=== PATIENT | female | born 1990 | race Caucasian/White ===

== ENCOUNTER 2016-09-10 20:05 | Emergency (ER) | payer OTHER ==
[2016-09-10 20:24] VITALS: BP 142/74
--- NOTE | 2016-09-10 21:04 | UC ---
Lower Extremity/Ankle HPI - HPI Summary HPI Summary: patient has had 2 days of mid foot pain on the right foot, unknown HARLAN, cant pin pint pain loaction and cannot replicated pain at this time. she states it started in the foot and radiates up the leg sometimes. - History of Current Complaint Chief Complaint: UCLowerExtremity Stated Complaint: FOOT PAIN Time Seen by Provider: 09/10/16 20:48 Hx Last Menstrual Period: pt has nexplanon - Allergies/Home Medications Allergies/Adverse Reactions: Allergies Allergy/AdvReac Type Severity Reaction Status Date / Time No Known Allergies Allergy Verified 05/22/13 16:17 Home Medications: Home Medications Etonogestrel [Nexplanon] 68 mg IMPLANT 09/10/16 [History] PMH/Surg Hx/FS Hx/Imm Hx Endocrine History Of: Denies: Diabetes, Thyroid Disease Cardiovascular History Of: Denies: Cardiac Disorders, Hypertension Respiratory History Of: Denies: COPD, Asthma GI/ History Of: Denies: Ulcer - Surgical History Surgical History: Yes Surgery Procedure, Year, and Place: July 26, 2010 - ; failure to progress - Social History Alcohol Use: Occasionally Substance Use Type: None Smoking Status (MU): Never Smoked Tobacco Review of Systems Constitutional: Negative Skin: Negative Eyes: Negative ENT: Negative Respiratory: Negative Cardiovascular: Negative Gastrointestinal: Negative Genitourinary: Negative Motor: Negative Neurovascular: Negative Musculoskeletal: Arthralgia, Decreased ROM, Myalgia Neurological: Negative Psychological: Negative All Other Systems Reviewed And Are Negative: Yes Physical Exam Triage Information Reviewed: Yes Appearance: Well-Appearing, Well-Nourished, Pain Distress Vital Signs: Initial Vital Signs Temp 98.2 F 09/10/16 20:19 Pulse 86 09/10/16 20:19 Resp 18 09/10/16 20:19 BP 142/74 09/10/16 20:19 Pulse Ox 99 09/10/16 20:19 Vital Signs Reviewed: Yes Eye Exam: Normal Eyes: Positive: Conjunctiva Clear ENT Exam: Normal ENT: Positive: Hearing grossly normal, Pharynx normal, TMs normal Dental Exam: Normal Neck exam: Normal Neck: Positive: Supple, Nontender, No Lymphadenopathy Respiratory Exam: Normal Respiratory: Positive: Chest non-tender, Lungs clear, Normal breath sounds Cardiovascular Exam: Normal Cardiovascular: Positive: RRR, No Murmur, Pulses Normal Abdominal Exam: Normal Abdomen Description: Positive: Nontender, No Organomegaly, Soft Bowel Sounds: Positive: Present Musculoskeletal: Positive: Strength Intact, ROM Intact, No Edema, Other: - patient unable to replicated pain, weight bearing causes diffuse pain, points to some discomfort on the 5th met, some discomfort at the ball of the foot. Neurological Exam: Normal Neurological: Positive: Alert, Muscle Tone Normal Psychological Exam: Normal Skin Exam: Normal Lower Extremity Course/Dx - Course Course Of Treatment: hx obtained, exam performed, meds reviewed, xray is negative, placed in charlene and post p shoe for support, recommend warm soaks 20-3 times daily and follow up with any increasing symtpoms. - Differential Dx/Diagnosis Differential Diagnosis/HQI/PQRI: Contusion, Fracture (Closed), Sprain, Strain, Tendonitis Provider Diagnoses: foot strain Discharge - Discharge Plan Condition: Stable Disposition: HOME Patient Education Materials: Muscle Strain (ED) Additional Instructions: 1. wear the charlene and post op shoe for comfort. 2. warm foot soaks 2-3 times a day to increase circulation. 3. Follow up with increasing symptoms, your xray was negative. 4. Ibuprofen or tylenol for pain.
--- NOTE | 2016-09-10 21:36 | RAD ---
INDICATION: 3 days of mid foot pain with unknown injury. COMPARISON: None. TECHNIQUE: 3 views of the right foot were obtained. FINDINGS: The adequately corticated bones are properly aligned. Joint spaces appear maintained. No fracture, dislocation or focal bony abnormality is seen. IMPRESSION: Normal radiograph of the right foot. If the patient's symptoms persist, follow-up imaging is recommended.
== END 2016-09-10 21:51 | disposition home or self-care (01) ==
LOC: UCEAST 20:05
DX: S96.911A Strain of unspecified muscle and tendon at ankle and foot level, right foot, initial encounter (principal); X58.XXXA Exposure to other specified factors, initial encounter
CPT/HCPCS: 99203; G0463

== ENCOUNTER 2017-02-19 09:26 | Emergency (ER) | payer OTHER ==
[2017-02-19 10:51] VITALS: BP 140/91
--- NOTE | 2017-02-19 11:07 | UC ---
Ear Complaint HPI - HPI Summary HPI Summary: 26 yo female with left ear pain x 5 days no f/c no URI symptoms - History of Current Complaint Chief Complaint: UCEar Stated Complaint: EARS PLUGGED Time Seen by Provider: 02/19/17 10:47 Hx Obtained From: Patient Hx Last Menstrual Period: pt has nexplanon Onset/Duration: Sudden Onset Severity Initially: Mild Severity Currently: Moderate Pain Intensity: 4 Pain Scale Used: 0-10 Numeric Aggravating Factors: Nothing Alleviating Factors: Nothing Associated Signs/Symptoms: Positive: Hearing Loss Related History: Prior ENT Surgery - PETs - Allergies/Home Medications Allergies/Adverse Reactions: Allergies Allergy/AdvReac Type Severity Reaction Status Date / Time No Known Allergies Allergy Verified 05/22/13 16:17 PMH/Surg Hx/FS Hx/Imm Hx Previously Healthy: Yes - Surgical History Surgical History: Yes Surgery Procedure, Year, and Place: July 26, 2010 - ; failure to progress - Family History Known Family History: Negative: Cardiac Disease, Hypertension, Diabetes - Social History Alcohol Use: Occasionally Substance Use Type: None Smoking Status (MU): Never Smoked Tobacco Review of Systems Constitutional: Negative Skin: Negative Eyes: Negative ENT: Ear Ache Respiratory: Negative Cardiovascular: Negative Gastrointestinal: Negative Genitourinary: Negative Motor: Negative Neurovascular: Negative Musculoskeletal: Negative Neurological: Negative Psychological: Negative Is Patient Immunocompromised?: No All Other Systems Reviewed And Are Negative: Yes Physical Exam Triage Information Reviewed: Yes Appearance: Well-Appearing, No Pain Distress, Well-Nourished Vital Signs: Initial Vital Signs Temp 99.1 F 02/19/17 10:47 Pulse 86 02/19/17 10:47 Resp 18 02/19/17 10:47 BP 140/91 02/19/17 10:47 Pulse Ox 99 02/19/17 10:47 Vital Signs Reviewed: Yes Eyes: Positive: Conjunctiva Clear ENT: Positive: TM bulging - L, TM red - L. Negative: Hearing grossly normal - decreased hearing left, Nasal congestion, Nasal drainage, Trismus, Muffled/ hoarse voice Neck: Positive: Supple, Nontender Respiratory: Positive: Lungs clear, Normal breath sounds, No respiratory distress Cardiovascular: Positive: RRR, No Murmur Musculoskeletal: Positive: ROM Intact, No Edema Neurological: Positive: Alert Psychological Exam: Normal Skin Exam: Normal Ear Complaint Course/Dx - Differential Dx/Diagnosis Provider Diagnoses: left otitis media Discharge - Discharge Plan Condition: Stable Disposition: HOME Prescriptions: Amoxicillin PO (*) [Amoxicillin 875 MG (*)] 875 mg PO BID #20 tab Patient Education Materials: Otitis Media (ED) Referrals: [facility] [place] [facility] [Outside] - 2 Weeks No Primary Care Phys,NOPCP [Primary Care Provider] - Additional Instructions: recheck in 2 weeks if hearing not back to normal your blood pressure is a little high today and should be followed try to find a local MD
== END 2017-02-19 11:02 | disposition home or self-care (01) ==
LOC: UCEAST 09:26
DX: H66.92 Otitis media, unspecified, left ear (principal)
CPT/HCPCS: 99212; G0463

== ENCOUNTER 2017-03-22 15:18 | Emergency (ER) | payer OTHER ==
[2017-03-22 15:42] VITALS: BP 147/88
--- NOTE | 2017-03-22 16:42 | UC ---
Throat Pain/Nasal Chemo HPI - HPI Summary HPI Summary: Patient presents with two day onset complaints of sinus pain and pressure with sinus discomfort. She denies fever, chills, purulent nasal discharge. She denies any headache, dizziness, weakness, ataxia. She states these symptoms are consistent with when she has a sinus infection. - History of Current Complaint Chief Complaint: UCGeneralIllness Stated Complaint: SINUS CONGESTION Time Seen by Provider: 03/22/17 16:23 Hx Obtained From: Patient Hx Last Menstrual Period: 03/03/17 ?: No Onset/Duration: Gradual Onset, Lasting Days Severity: Worse Since: - this morning Associated Signs & Symptoms: Positive: Sinus Discomfort, Nasal Discharge - Epiglottits Risk Factors Epiglottis Risk Factors: Negative - Allergies/Home Medications Allergies/Adverse Reactions: Allergies Allergy/AdvReac Type Severity Reaction Status Date / Time No Known Allergies Allergy Verified 05/22/13 16:17 PMH/Surg Hx/FS Hx/Imm Hx Previously Healthy: Yes - Surgical History Surgical History: Yes Surgery Procedure, Year, and Place: July 26, 2010 - ; failure to progress. August 27, 2013 - Family History Known Family History: Positive: Hypertension, Diabetes, Respiratory Disease - Social History Occupation: Works From/At Home Lives: With Family Alcohol Use: Occasionally Substance Use Type: None Smoking Status (MU): Never Smoked Tobacco Review of Systems Constitutional: Negative Skin: Negative Eyes: Negative ENT: Nasal Discharge, Sinus Congestion, Sinus Pain/Tenderness Respiratory: Negative Cardiovascular: Negative Gastrointestinal: Negative Genitourinary: Negative Motor: Negative Neurovascular: Negative Musculoskeletal: Negative Neurological: Negative Psychological: Negative All Other Systems Reviewed And Are Negative: Yes Physical Exam Triage Information Reviewed: Yes Appearance: Well-Appearing Vital Signs: Initial Vital Signs Temp 98.6 F 03/22/17 15:36 Pulse 97 03/22/17 15:36 Resp 22 03/22/17 15:36 BP 147/88 03/22/17 15:36 Pulse Ox 100 03/22/17 15:36 Eye Exam: Normal ENT: Positive: Nasal congestion, Nasal drainage, Sinus tenderness Neck exam: Normal Neck: Positive: 1 Respiratory Exam: Normal Cardiovascular Exam: Normal Abdominal Exam: Normal Musculoskeletal Exam: Normal Neurological Exam: Normal Psychological Exam: Normal Skin Exam: Normal Throat Pain/Nasal Course/Dx - Course Assessment/Plan: Patient was treated for sinusitis with Augmentin 500 mg twice daily for 10 days. - Differential Dx/Diagnosis Differential Diagnosis/HQI/PQRI: Sinusitis Provider Diagnoses: sinusitis Discharge - Discharge Plan Condition: Stable Disposition: HOME Prescriptions: Amoxicillin/Clavulanate TAB* [Augmentin TAB 500 mg*] 500 mg PO BID #20 tab Patient Education Materials: Sinusitis (ED) Referrals: No Primary Care Phys,NOPCP [Primary Care Provider] -
== END 2017-03-22 16:45 | disposition home or self-care (01) ==
LOC: UCEAST 15:18
DX: J32.9 Chronic sinusitis, unspecified (principal)
CPT/HCPCS: 99212; G0463

== ENCOUNTER 2017-07-27 16:08 | Emergency (ER) | payer BC, OTHER ==
[2017-07-27 16:44] VITALS: BP 149/91
--- NOTE | 2017-07-27 21:34 | UC ---
Ari Thomas Nikita, scribed for Zaheer Patterson MD on 07/27/17 at 1657 . Ear Complaint HPI - HPI Summary HPI Summary: This patient is a 27 year old F presenting to [facility] with a chief complaint of R ear pain since 4-5 days ago and L ear pain today. The patient rates the pain 8/ 10 in severity. Symptoms aggravated by nothing. Symptoms alleviated by nothing. Patient reports intermittent fever, body aches, and intermittent rhinorrhea. Patient denies ear discharge and sore throat. - History of Current Complaint Chief Complaint: UCEar Stated Complaint: EAR ACHE Time Seen by Provider: 07/27/17 16:31 Hx Obtained From: Patient Hx Last Menstrual Period: years Onset/Duration: Sudden Onset, Lasting Days, Still Present Severity Initially: Moderate Severity Currently: Moderate Pain Intensity: 8 Pain Scale Used: 0-10 Numeric Aggravating Factors: Nothing Alleviating Factors: Nothing Associated Signs/Symptoms: Negative: Discharge - Patient reports intermittent fever, body aches, and intermittent rhinorrhea. Patient denies ear discharge and sore throat. - Allergies/Home Medications Allergies/Adverse Reactions: Allergies Allergy/AdvReac Type Severity Reaction Status Date / Time No Known Allergies Allergy Verified 07/27/17 16:44 PMH/Surg Hx/FS Hx/Imm Hx Endocrine History: Other Other Endocrine History: NO DM Cardiovascular History: Other Other Cardiovascular History: NO CAD, HTN - Surgical History Surgical History: Yes Surgery Procedure, Year, and Place: July 26, 2010 - ; failure to progress. August 27, 2013 Other Surgical History: ear tubes when she was a child - Family History Known Family History: Positive: Hypertension, Diabetes, Respiratory Disease - Social History Alcohol Use: Occasionally Substance Use Type: None Smoking Status (MU): Never Smoked Tobacco Review of Systems Constitutional: Fever ENT: Ear Ache - bilaterally, Other - rhinorreha; denies ear discharge and sore throat Musculoskeletal: Other: - body aches All Other Systems Reviewed And Are Negative: Yes Physical Exam - Summary Physical Exam Summary: VITAL SIGNS: Reviewed. GENERAL: ~Patient is a well-developed and nourished FEMALE who is lying comfortable in the stretcher. ~Patient is not in any acute respiratory distress. HEAD AND FACE: Normocephalic EYES: PERRLA, EOMI x 2. EARS: Hearing grossly intact. R ear is erythematous and bulging, L ear is normal MOUTH: Oropharynx within normal limits. NECK: Supple, trachea is midline, no adenopathy, no JVD, no carotid bruit. CHEST: Symmetric, no tenderness at palpation LUNGS: Clear to auscultation bilaterally. No wheezing or crackles. CVS: Regular rate and rhythm, S1 and S2 present, no murmurs or gallops appreciated. ABDOMEN: Soft, non-tender. Bowel sounds are normal. No abdominal abnormal pulsations. EXTREMITIES: Full ROM in all major joints, no edema, no cyanosis or clubbing. NEURO: Alert and oriented x 3. No acute neurological deficits. Speech is normal and follows commands. SKIN: Dry and warm Triage Information Reviewed: Yes Vital Signs: Initial Vital Signs Temp 98.6 F 07/27/17 16:42 Pulse 71 07/27/17 16:42 Resp 18 07/27/17 16:42 BP 149/91 07/27/17 16:42 Pulse Ox 98 07/27/17 16:42 Ear Complaint Course/Dx - Course Course Of Treatment: I discussed all the findings and test results with the patient. Patient was instructed to return to the urgent care or go to ER immediately if any of the symptoms return or worsens. Plan of care was discussed with the patient, and patient understands and agrees. All questions were answered to patient satisfaction. There were no further complaints or concerns. - Differential Dx/Diagnosis Differential Diagnosis/HQI/PQRI: Other - ear infection Provider Diagnoses: ear infection Discharge - Sign-Out/Discharge Documenting (check all that apply): Discharge - Discharge Plan Condition: Stable Disposition: HOME Prescriptions: Amoxicillin PO (*) [Amoxicillin 875 MG (*)] 875 mg PO BID #20 tab Patient Education Materials: Ear Infection (ED) Referrals: [facility] [place] [facility] [Outside] No Primary Care Phys,NOPCP [Primary Care Provider] - Additional Instructions: Take medications as instructed Increase your fluid intake Return to the if symptoms worsen The documentation as recorded by the Ari bender Nikita accurately reflects the service I personally performed and the decisions made by me, Zaheer Patterson MD.
== END 2017-07-27 17:10 | disposition home or self-care (01) ==
LOC: UCEAST 16:08
DX: H66.93 Otitis media, unspecified, bilateral (principal); R50.9 Fever, unspecified; M79.1 Myalgia; J34.89 Other specified disorders of nose and nasal sinuses
CPT/HCPCS: 99212; G0463